=== PATIENT | female | born 1990 | race Caucasian/White ===

== ENCOUNTER 2017-01-29 17:00 | Inpatient (IN) | payer SELFPAY ==
[~2017-01-29] VITALS: Ht 167.6 cm; Wt 70.0 kg
[2017-01-29] MEDS ORDERED: NORMAL SALINE IV SCH (17:41)
[2017-01-29] MEDS ORDERED: ONDANSETRON PF 4 MG/2 ML VIAL. IV ONE (17:45)
[2017-01-29] MEDS: IV NORMAL SALINE 1000ML BAG 1,000 ML IV SCH ×2 (17:49→18:46)
[2017-01-29 17:55] LABS: BASO % 0 % (0-3); EOS % 0 % (0-3); HEMATOCRIT 38.9 % (36.0-47.0); HEMOGLOBIN 13.2 g/dL (12.0-15.5); LYMPH # 1.9 x10^3/uL (1.0-4.8); LYMPH % 12 % (24-48); MEAN CORPUSCULAR HEMOGLOBIN 31 pg (25-35); MEAN CORPUSCULAR HGB CONC 34 g/dL (31-37); MEAN CORPUSCULAR VOLUME 90 fL (79-100); MONO % 8 % (0-9); NEUT % 80 % (31-73); PLATELET COUNT 236 x10^3/uL (140-400); RED BLOOD COUNT 4.31 x10^6/uL (3.50-5.40); RED CELL DISTRIBUTION WIDTH 13.2 % (11.5-14.5); WHITE BLOOD COUNT 15.4 x10^3/uL (4.0-11.0)
[2017-01-29] MEDS: FENTANYL PF 100 MCG/2 ML VIAL. IV PRN ×3 (17:55→23:52)
[2017-01-29 18:01] LABS: BILIRUBIN,URINE NEGATIVE (NEG); GLUCOSE,URINE NEGATIVE (NEG); NITRITE,URINE POSITIVE (NEG); PH,URINE 6.5; PROTEIN,URINE NEGATIVE (NEG-TRACE)
[2017-01-29 18:12] LABS: ALBUMIN 3.5 g/dL (3.4-5.0); TOTAL PROTEIN 8.3 g/dL (6.4-8.2)
[2017-01-29 18:13] LABS: ALBUMIN/GLOBULIN RATIO 0.7 (1.0-1.7); ALK PHOS 66 U/L (46-116); ALT (SGPT) 14 U/L (14-59); ANION GAP 13 (6-14); AST (SGOT) 14 U/L (15-37); BLOOD UREA NITROGEN 5 mg/dL (7-20); BUN/CREATININE RATIO 7 (6-20); CALCIUM 8.9 mg/dL (8.5-10.1); CARBON DIOXIDE 25 mmol/L (21-32); CHLORIDE 98 mmol/L (98-107); CREATININE 0.7 mg/dL (0.6-1.0); GFR 101.1; GLUCOSE 84 mg/dL (70-99); SODIUM 136 mmol/L (136-145); TOTAL BILIRUBIN 0.5 mg/dL (0.2-1.0)
[2017-01-29 18:17] LABS: POTASSIUM 2.9 mmol/L (3.5-5.1)
[2017-01-29 18:19] LABS: WBC,URINE 20-40 /HPF (0-4)
[2017-01-29 18:20] LABS: BACTERIA,URINE MANY /HPF (0-FEW); SQUAMOUS EPITHELIAL CELL,UR MOD /LPF
[2017-01-29] MEDS ORDERED: CEFTRIAXONE 1GM IVPB FOR OMNI 50 ML IV ONE (18:30)
--- NOTE | 2017-01-29 18:47 | PHYS DOC ---
Past Medical History Past Medical History: No Pertinent History Past Surgical History: Other Additional Past Surgical Histo: D & C Alcohol Use: Occasionally Drug Use: Marijuana Adult General Chief Complaint Chief Complaint: FLANK PAIN HPI HPI Patient is a 26 year old female who presents with complaint of left-sided flank pain. Patient states that her symptoms started yesterday but states that her pain was across her back. Patient states that she also had associated body aches and subjective fevers. Patient states that she tried increasing her fluid intake and hoping that this would help with her symptoms. Patient states that she awoke with severe localizing pain in the left flank this morning. Patient continued to have fevers and developed nausea and vomiting. Patient states she has not been able to keep anything down and she rates her pain currently is 10 out of 10. Patient denies any significant past medical history. Review of Systems Review of Systems Constitutional: Fever, chills [] Eyes: Denies change in visual acuity, redness, or eye pain [] HENT: Denies nasal congestion or sore throat [] Respiratory: Denies cough or shortness of breath [] Cardiovascular: Denies chest pain [] GI: Nausea, vomiting, denies abdominal pain bloody stools or diarrhea [] : Denies dysuria or hematuria [] Musculoskeletal: Denies back pain or joint pain [] Integument: Denies rash or skin lesions [] Neurologic: Denies headache, focal weakness or sensory changes [] Current Medications Current Medications Current Medications Medications (Trade) Dose Ordered Sig/[place]ster Start Time Stop Time Status Last Admin Dose Admin Ceftriaxone Sodium (Rocephin 1gm Ivpb For Omni) 50 ml @ 100 mls/hr 1X ONCE 01/29/17 18:30 01/29/17 18:59 DC 01/29/17 19:17 100 MLS/HR Fentanyl Citrate (Fentanyl 2ml Vial) 50 mcg PRN Q15MIN PRN 01/29/17 17:45 01/30/17 17:44 01/29/17 21:28 50 MCG Ondansetron HCl 4 mg 4 mg 1X ONCE 01/29/17 17:45 01/29/17 17:46 DC 01/29/17 17:54 4 MG Sodium Chloride 1,000 ml @ 1,000 mls/hr Q1H 01/29/17 17:46 01/29/17 19:25 DC 01/29/17 17:49 1,000 MLS/HR Sodium Chloride (Iv Sodium Chloride 0.9% 1000ml Bag) 1,830 ml @ 1,830 mls/hr Q1H 01/29/17 17:41 01/29/17 17:46 DC Allergies Allergies Allergies Coded Allergies Type Severity Reaction Last Updated Verified No Known Drug Allergies 01/29/17 No Physical Exam Physical Exam Constitutional: Alert, febrile, appears in moderate to severe discomfort. [] HENT: Normocephalic, atraumatic, bilateral external ears normal, oropharynx moist, no oral exudates, nose normal. [] Eyes: PERRLA, EOMI, conjunctiva normal, no discharge. [] Neck: Normal range of motion, no tenderness, supple, no stridor. [] Cardiovascular: Tachycardia, regular rhythm, no murmur [] Lungs & Thorax: Bilateral breath sounds clear to auscultation [] Abdomen: Bowel sounds normal, soft, no tenderness, no masses, no pulsatile masses. [] Skin: Warm, dry, no erythema, no rash. [] Back: Left CVA tenderness, no midline tenderness, no flank ecchymosis. [] Extremities: No tenderness, no cyanosis, no clubbing, ROM intact, no edema. [] Neurologic: Alert and oriented X 3, normal motor function, normal sensory function, no focal deficits noted. [] Current Patient Data Vital Signs Vital Signs Date Time Temp Pulse Resp B/P Pulse Ox O2 Delivery O2 Flow Rate FiO2 01/29/17 17:55 20 99 Room Air 01/29/17 17:13 100.0 112 115/75 100.0 Lab Values Laboratory Tests Test 01/29/17 17:05 01/29/17 17:14 01/29/17 17:15 01/29/17 18:05 Urine Collection Type Unknown Urine Color Yellow Urine Clarity Clear Urine pH 6.5 Urine Specific [place] 1.010 Urine Protein Negativemg/dL (NEG-TRACE) Urine Glucose (UA) Negativemg/dL (NEG) Urine Ketones (Stick) Negativemg/dL (NEG) Urine Blood Small (NEG) Urine Nitrite Positive (NEG) Urine Bilirubin Negative (NEG) Urine Urobilinogen Dipstick 1.0mg/dL (0.2 mg/dL) Urine Leukocyte Esterase Large (NEG) Urine RBC 1-2/HPF (0-2) Urine WBC 20-40/HPF (0-4) Urine Squamous Epithelial Cells Mod/LPF Urine Bacteria Many/HPF (0-FEW) Urine Mucus Marked/LPF POC Urine HCG, Qualitative Hcg negative (Negative) White Blood Count 15.4x10^3/uL (4.0-11.0) H Red Blood Count 4.31x10^6/uL (3.50-5.40) Hemoglobin 13.2g/dL (12.0-15.5) Hematocrit 38.9% (36.0-47.0) Mean Corpuscular Volume 90fL (79-100) Mean Corpuscular Hemoglobin 31pg (25-35) Mean Corpuscular Hemoglobin Concent 34g/dL (31-37) Red Cell Distribution Width 13.2% (11.5-14.5) Platelet Count 236x10^3/uL (140-400) Neutrophils (%) (Auto) 80% (31-73) H Lymphocytes (%) (Auto) 12% (24-48) L Monocytes (%) (Auto) 8% (0-9) Eosinophils (%) (Auto) 0% (0-3) Basophils (%) (Auto) 0% (0-3) Neutrophils # (Auto) 12.3x10^3uL (1.8-7.7) H Lymphocytes # (Auto) 1.9x10^3/uL (1.0-4.8) Monocytes # (Auto) 1.2x10^3/uL (0.0-1.1) H Eosinophils # (Auto) 0.0x10^3/uL (0.0-0.7) Basophils # (Auto) 0.0x10^3/uL (0.0-0.2) Sodium Level 136mmol/L (136-145) Potassium Level 2.9mmol/L (3.5-5.1) *L Chloride Level 98mmol/L (98-107) Carbon Dioxide Level 25mmol/L (21-32) Anion Gap 13 (6-14) Blood Urea Nitrogen 5mg/dL (7-20) L Creatinine 0.7mg/dL (0.6-1.0) Estimated GFR (Cockcroft-Gault) 101.1 BUN/Creatinine Ratio 7 (6-20) Glucose Level 84mg/dL (70-99) Calcium Level 8.9mg/dL (8.5-10.1) Total Bilirubin 0.5mg/dL (0.2-1.0) Aspartate Amino Transferase (AST) 14U/L (15-37) L Alanine Aminotransferase (ALT) 14U/L (14-59) Alkaline Phosphatase 66U/L (46-116) Total Protein 8.3g/dL (6.4-8.2) H Albumin 3.5g/dL (3.4-5.0) Albumin/Globulin Ratio 0.7 (1.0-1.7) L Lipase 101U/L (73-393) Procalcitonin < 0.10ng/mL (0.00-0.10) Lactic Acid Level 1.9mmol/L (0.4-2.0) Laboratory Tests 01/29/17 17:15 Laboratory Tests 01/29/17 17:15 EKG EKG Not performed [] Radiology/Procedures Radiology/Procedures One view AP chest x-ray interpreted by me: No infiltrate, no effusions, normal cardiac silhouette [facility] [address] [place] [address] IMAGING REPORT Signed PATIENT: JUAN F MOLINA ACCOUNT: [id number] : 1990 LOCATION: ER AGE: 26 SEX: F EXAM STATUS: REG ER ORD. PHYSICIAN: DARRYL SEBASTIAN MD REASON: left-sided flank pain, rule out renal stone PROCEDURE: ABDOMEN PELVIS WO CONTRAST INDICATION: 26-year-old female with bilateral flank pain, mostly on the left, evaluate COMPARISON: None TECHNIQUE: Axial CT images obtained through the abdomen and pelvis without the use of intravenous contrast. Coronal and sagittal reformats are provided One or more of the following individualized dose reduction techniques were utilized for this examination: 1. Automated exposure control; 2. Adjustment of the mA and/or kV according to patient size; 3. Use of iterative reconstruction technique. FINDINGS: Visualized lung bases appear clear. Detailed evaluation of intra-abdominal and pelvic organs and vascular structures is limited secondary to lack of IV contrast. Within this limitation, the liver, spleen, gallbladder, pancreas, adrenal glands and right kidney demonstrate no focal abnormality. A punctate, 1-2 mm calculus is present within the inferior left kidney. No hydronephrosis is present. No additional urolithiasis is seen. The GI tract demonstrates no dilated bowel loops to suggest obstruction. Appendix is normal in caliber and air-filled in the right lower quadrant. The urinary bladder demonstrates no focal abnormality. Uterus and bilateral adnexa demonstrate no focal abnormality. No intra-abdominal or pelvic free fluid, free air or significant lymphadenopathy is seen. The aorta is normal in caliber. Visualized osseous structures and overlying soft tissues demonstrate no acute or suspicious finding. IMPRESSION: A punctate, nonobstructing calculus is present in the inferior left kidney. No additional urolithiasis is present. Electronically signed by: Ld Parikh (Jan 29, 2017 18:58:10) DICTATED and SIGNED BY: LD PARIKH MD DATE: 01/29/17 [id number] CC: ARTI BOYKIN MD; DARRYL SEBASTIAN MD ~ [] Course & Med Decision Making Course & Med Decision Making Pertinent Labs and Imaging studies reviewed. (See chart for details) Patient was found to have evidence of urinary tract infection. Given patient's left CVA tenderness the patient's symptoms are consistent with acute pyelonephritis. Patient meet sepsis criteria at this time due to tachycardia and elevated white count. The patient was also found to have a potassium level of 2.9. Patient is unable to receive oral replacement at this time due to continued nausea and vomiting. The patient will need further treatment in hospital with IV Rocephin and IV hydration. I spoke with Dr. Mills who is on- call for Dr. Boykin and he accepted care of patient in hospital. Dragon Disclaimer Dragon Disclaimer This electronic medical record was generated, in whole or in part, using a voice recognition dictation system. Departure Departure Impression: Primary Impression: Acute pyelonephritis Additional Impressions: Sepsis Hypokalemia Disposition: ADMITTED INPATIENT Admitting Physician: Belle Bernardo Condition: GUARDED Referrals: ARTI BOYKIN MD (PCP) Problem Qualifiers Additional Impressions: Sepsis Sepsis type: sepsis due to unspecified organism Qualified Code: A41.9 - Sepsis, unspecified organism DARRYL SEBASTIAN MD Jan 29, 2017 18:47
--- NOTE | 2017-01-29 18:59 | RAD ---
INDICATION: 26-year-old female with bilateral flank pain, mostly on the left, evaluate COMPARISON: None TECHNIQUE: Axial CT images obtained through the abdomen and pelvis without the use of intravenous contrast. Coronal and sagittal reformats are provided One or more of the following individualized dose reduction techniques were utilized for this examination: 1. Automated exposure control; 2. Adjustment of the mA and/or kV according to patient size; 3. Use of iterative reconstruction technique. FINDINGS: Visualized lung bases appear clear. Detailed evaluation of intra-abdominal and pelvic organs and vascular structures is limited secondary to lack of IV contrast. Within this limitation, the liver, spleen, gallbladder, pancreas, adrenal glands and right kidney demonstrate no focal abnormality. A punctate, 1-2 mm calculus is present within the inferior left kidney. No hydronephrosis is present. No additional urolithiasis is seen. The GI tract demonstrates no dilated bowel loops to suggest obstruction. Appendix is normal in caliber and air-filled in the right lower quadrant. The urinary bladder demonstrates no focal abnormality. Uterus and bilateral adnexa demonstrate no focal abnormality. No intra-abdominal or pelvic free fluid, free air or significant lymphadenopathy is seen. The aorta is normal in caliber. Visualized osseous structures and overlying soft tissues demonstrate no acute or suspicious finding. IMPRESSION: A punctate, nonobstructing calculus is present in the inferior left kidney. No additional urolithiasis is present. Electronically signed by: Benita Parikh (Jan 29, 2017 18:58:10)
[2017-01-29 19:26] LABS: PROCALCITONIN < 0.10 ng/mL (0.00-0.10)
[2017-01-29] MEDS ORDERED: ACETAMINOPHEN 325 MG TABLET. PO PRN (19:45)
[2017-01-29] MEDS ORDERED: POTASSIUM CL 20MEQ D5-0.45NACL 1,000 ML IV ONE (19:45)
[2017-01-29 21:15] VITALS: BP 110/62
--- NOTE | 2017-01-29 21:43 | ACF ---
Admission Forms Criteria PYELONEPHRITIS, ACUTE Clinical Indications for Admission to Inpatient Care (Place 'X' for any and all applicable criteria): Admission is indicated for ANY ONE of the following 1,2,3,4,5 [ ]I. Outpatient treatment has failed or is not feasible (eg, multidrug- resistant organism).5 [ ]II. beyond 24 weeks' gestation6 [ ]III. Hemodynamic instability [ ]IV. Immunocompromised state (eg, AIDS, diabetes, sickle cell disease) [X]V. Known renal or urologic abnormalities (eg, indwelling catheter, structural abnormalities, renal calculi, urinary stent, previous urologic surgery) [ ]. Condition that requires drainage procedure, including ANY ONE of the following: [ ]a) Urinary obstruction [ ]b) Pyelitis [ ]c) Pyonephrosis [ ]d) Renal or perinephric abscess [ ]e) Emphysematous pyelonephritis 7 [ ]VII. Inpatient admission required rather than observation care (Also use Pyelonephritis, Acute: Observation Care Criteria as appropriate) because of ANY ONE of the following: [ ]a) High fever or infection requiring inpatient admission as indicated by ANY ONE of [id number] [ ]A. Documented bacteremia [ ]B. Temp>104.9 tytkgmg8X (oral) [ ]C. Temp>103.10F (oral) or <96.80F (rectal) that does not respond to all emergency treatment [ ]b) Acute renal failure [ ]c) Other significant finding or clinical condition judged not to be within the scope of observation care [ ]d) IV fluid to replace significant ongoing (eg, for over 24hrs) losses (> 3 L/m2 per day) [ ]e) Other condition,treatment or monitoring requiring inpatient admission The original [email or web address] content created by [employer] has been revised. The portions of the content which have been revised are identified through the use of italic text or in bold, and [facility] has neither reviewed nor approved the modified material. All other unmodified content is copyright [facility]. Please see references footnoted in the original [facility] edition 2016 Admission Criteria Met?: Yes MADYSON NARVAEZ Jan 29, 2017 21:43
[2017-01-29 22:39] VITALS: BP 115/75
[2017-01-29] MEDS: ONDANSETRON PF 4 MG/2 ML VIAL. IV PRN (22:46)
[2017-01-29 23:00] VITALS: BP_SYST 92
[2017-01-30 03:00] VITALS: BP 91/50
[2017-01-30] MEDS: FENTANYL PF 100 MCG/2 ML VIAL. IV PRN ×4 (05:50→15:06)
[2017-01-30 06:35] LABS: BASO # 0.1 x10^3/uL (0.0-0.2); BASO % 1 % (0-3); EOS % 0 % (0-3); HEMATOCRIT 35.1 % (36.0-47.0); HEMOGLOBIN 11.8 g/dL (12.0-15.5); LYMPH % 19 % (24-48); MEAN CORPUSCULAR HEMOGLOBIN 31 pg (25-35); MEAN CORPUSCULAR HGB CONC 34 g/dL (31-37); MEAN CORPUSCULAR VOLUME 93 fL (79-100); MONO % 12 % (0-9); NEUT % 69 % (31-73); PLATELET COUNT 187 x10^3/uL (140-400); RED BLOOD COUNT 3.78 x10^6/uL (3.50-5.40); RED CELL DISTRIBUTION WIDTH 13.1 % (11.5-14.5); WHITE BLOOD COUNT 10.9 x10^3/uL (4.0-11.0)
[2017-01-30 06:47] LABS: CALCIUM 8.3 mg/dL (8.5-10.1); CREATININE 0.6 mg/dL (0.6-1.0); GFR 120.8; POTASSIUM 3.5 mmol/L (3.5-5.1)
[2017-01-30 07:00] VITALS: BP 96/51
[2017-01-30] MEDS ORDERED: FLU VACC QUAD 2016-17 (36MOS+)/PF 0.5 ML SYRINGE. VAX IM ONE (07:30)
[2017-01-30] MEDS: POTASSIUM CL 20MEQ D5-0.45NACL 1,000 ML IV SCH (07:45)
--- NOTE | 2017-01-30 07:48 | PDOC ---
Provider Note Provider Note [id number] RUDY ZAPIEN MD Jan 30, 2017 07:47
--- NOTE | 2017-01-30 08:47 | RAD ---
EXAM: Chest one view. HISTORY: Fever, left flank pain, vomiting. COMPARISON: None. FINDINGS: A frontal view of the chest is obtained. There are no confluent infiltrates. There is no pneumothorax or pleural effusion. The heart is not enlarged. IMPRESSION: 1. No confluent infiltrates.
--- NOTE | 2017-01-30 08:57 | HP ---
ADMIT DATE: 01/29/2017 CHIEF COMPLAINT: Urinary tract infection. HISTORY OF PRESENT ILLNESS: This is a 26-year-old white female who came in with about 12 hours of left flank and lower abdominal pain, nausea, vomiting, fever and chills. She did not have overt urinary tract symptoms, but was found to have pyelonephritis per urine tests. CT scan did not show any hydronephrosis, but there was a small stone in the left kidney. She is feeling somewhat better at this time. PAST MEDICAL HISTORY: No pregnancies, no surgery, no serious medications or known allergies to any drugs. SOCIAL HISTORY: Nonsmoker, single, sexually active, uses condoms. FAMILY HISTORY: Unremarkable. REVIEW OF SYSTEMS: Last menstrual period about 10 days ago. She has had no other specific complaints. OBJECTIVE: ENT: All within normal limits. NECK: No masses, nodes or bruits. LUNGS: Clear. CARDIOVASCULAR: Regular rate. No tachycardia or murmur. ABDOMEN: Soft, benign and nontender. No masses or megaly. BACK: Very tender to palpation over the left flank. Right flank is normal. GENITOURINARY AND RECTAL: Deferred. EXTREMITIES: Unremarkable. Good pedal pulses. NEUROLOGIC: Physiologic. ASSESSMENT: Left-sided pyelonephritis, otherwise healthy. PLAN: Continue fluids and Rocephin. Pending culture. RUDY ZAPIEN MD DR: AMMY/dinah JOB#: [id number] / [id number]
--- NOTE | 2017-01-30 09:10 | EKG ---
[facility] [address] [place] [address] Test Date: 2017-01-29 Test Time: 18:00:24 Pat Name: JUAN F MOLINA Department: Room: Gender: F Turner [employer] Former Automatic: : 1990 Requested By: DARRYL SEBASTIAN Order Number: [id number] Reading MD: Measurements Intervals [place] Rate: 92 P: 36 CO: 132 QRS: 31 QRSD: 82 T: 28 QT: 340 QTc: 425 Interpretive Statements SINUS RHYTHM INCOMPLETE RIGHT BUNDLE BRANCH BLOCK T ABNORMALITY IN ANTERIOR LEADS RI6.01 Unconfirmed report No previous ECG available for comparison
[2017-01-30 11:00] VITALS: BP 114/75
[2017-01-30] MEDS: ONDANSETRON PF 4 MG/2 ML VIAL. IV PRN (11:37)
[2017-01-30 15:00] VITALS: BP 115/71
[2017-01-30 19:00] VITALS: BP 105/64
[2017-01-30] MEDS: ACETAMINOPHEN 325 MG TABLET. PO PRN (20:38)
[2017-01-30] MEDS: CEFTRIAXONE SODIUM 1 GM in IV NORMAL SALINE 50ML 50 ML IV SCH (20:38)
[2017-01-30 23:09] VITALS: BP 104/61
[2017-01-31] MEDS: POTASSIUM CL 20MEQ D5-0.45NACL 1,000 ML IV SCH ×3 (01:20→14:48)
[2017-01-31] MEDS: ACETAMINOPHEN 325 MG TABLET. PO PRN ×4 (04:22→22:07)
[2017-01-31 07:00] VITALS: BP 104/74
[2017-01-31 10:46] VITALS: BP 114/76
--- NOTE | 2017-01-31 11:14 | PDOC ---
PROGRESS NOTES Subjective Subjective Pt awake and pleasant in conversation. Continues to c/o discomfort in her left lower back. States her appetite is returning. Denies n/v/d. Objective Objective Pt awake and alert. NAD. VSS. Tmax 99.9. Resp even and unlabored. Lungs CTA bilat. Heart with RRR. No murmurs. No pedal edema. Positive left sided CVT. Vital Signs Date Time Temp Pulse Resp B/P Pulse Ox O2 Delivery O2 Flow Rate FiO2 01/31/17 10:46 98.6 70 18 114/76 99 Room Air 98.6 Intake and Output 01/31/17 07:00 Intake Total 1890 ml Output Total 3550 ml Balance -1660 ml Intake Oral 840 ml IV Total 1050 ml Output Urine Total 3550 ml Assessment Assessment Problems Medical Problems: (1) Acute pyelonephritis Status: Acute (2) Hypokalemia Status: Acute (3) Sepsis Status: Acute Plan Plan of Care 1. Pyelonephritis -UA with gram negative rods, cx pending -Rocephin IV during interim -WBC 10.9 this am, trending down -Blood cx negative 2. Hypokalemia -K 2.9 on 01/29, 3.5 this am following replacement in IVF. Awaiting final urine cx results and sensitivity. Once resulted can Dc pt home on PO med based on sensitivity. Comment Review of Relevant I have reviewed the following items pamela (where applicable) has been applied. Labs Laboratory Tests Test 01/29/17 17:05 01/29/17 17:14 01/29/17 17:15 01/29/17 18:05 Urine Collection Type Unknown Urine Color Yellow Urine Clarity Clear Urine pH 6.5 Urine Specific [place] 1.010 Urine Protein Negativemg/dL (NEG-TRACE) Urine Glucose (UA) Negativemg/dL (NEG) Urine Ketones (Stick) Negativemg/dL (NEG) Urine Blood Small (NEG) Urine Nitrite Positive (NEG) Urine Bilirubin Negative (NEG) Urine Urobilinogen Dipstick 1.0mg/dL (0.2 mg/dL) Urine Leukocyte Esterase Large (NEG) Urine RBC 1-2/HPF (0-2) Urine WBC 20-40/HPF (0-4) Urine Squamous Epithelial Cells Mod/LPF Urine Bacteria Many/HPF (0-FEW) Urine Mucus Marked/LPF Bedside Urine HCG, Qualitative Hcg negative (Negative) White Blood Count 15.4x10^3/uL (4.0-11.0) Red Blood Count 4.31x10^6/uL (3.50-5.40) Hemoglobin 13.2g/dL (12.0-15.5) Hematocrit 38.9% (36.0-47.0) Mean Corpuscular Volume 90fL (79-100) Mean Corpuscular Hemoglobin 31pg (25-35) Mean Corpuscular Hemoglobin Concent 34g/dL (31-37) Red Cell Distribution Width 13.2% (11.5-14.5) Platelet Count 236x10^3/uL (140-400) Neutrophils (%) (Auto) 80% (31-73) Lymphocytes (%) (Auto) 12% (24-48) Monocytes (%) (Auto) 8% (0-9) Eosinophils (%) (Auto) 0% (0-3) Basophils (%) (Auto) 0% (0-3) Neutrophils # (Auto) 12.3x10^3uL (1.8-7.7) Lymphocytes # (Auto) 1.9x10^3/uL (1.0-4.8) Monocytes # (Auto) 1.2x10^3/uL (0.0-1.1) Eosinophils # (Auto) 0.0x10^3/uL (0.0-0.7) Basophils # (Auto) 0.0x10^3/uL (0.0-0.2) Sodium Level 136mmol/L (136-145) Potassium Level 2.9mmol/L (3.5-5.1) Chloride Level 98mmol/L (98-107) Carbon Dioxide Level 25mmol/L (21-32) Anion Gap 13 (6-14) Blood Urea Nitrogen 5mg/dL (7-20) Creatinine 0.7mg/dL (0.6-1.0) Estimated GFR (Cockcroft-Gault) 101.1 BUN/Creatinine Ratio 7 (6-20) Glucose Level 84mg/dL (70-99) Calcium Level 8.9mg/dL (8.5-10.1) Total Bilirubin 0.5mg/dL (0.2-1.0) Aspartate Amino Transf (AST/SGOT) 14U/L (15-37) Alanine Aminotransferase (ALT/SGPT) 14U/L (14-59) Alkaline Phosphatase 66U/L (46-116) Total Protein 8.3g/dL (6.4-8.2) Albumin 3.5g/dL (3.4-5.0) Albumin/Globulin Ratio 0.7 (1.0-1.7) Lipase 101U/L (73-393) Procalcitonin < 0.10ng/mL (0.00-0.10) Lactic Acid Level 1.9mmol/L (0.4-2.0) Test 01/29/17 19:37 01/30/17 05:55 Lactic Acid Level 0.7mmol/L (0.4-2.0) White Blood Count 10.9x10^3/uL (4.0-11.0) Red Blood Count 3.78x10^6/uL (3.50-5.40) Hemoglobin 11.8g/dL (12.0-15.5) Hematocrit 35.1% (36.0-47.0) Mean Corpuscular Volume 93fL (79-100) Mean Corpuscular Hemoglobin 31pg (25-35) Mean Corpuscular Hemoglobin Concent 34g/dL (31-37) Red Cell Distribution Width 13.1% (11.5-14.5) Platelet Count 187x10^3/uL (140-400) Neutrophils (%) (Auto) 69% (31-73) Lymphocytes (%) (Auto) 19% (24-48) Monocytes (%) (Auto) 12% (0-9) Eosinophils (%) (Auto) 0% (0-3) Basophils (%) (Auto) 1% (0-3) Neutrophils # (Auto) 7.6x10^3uL (1.8-7.7) Lymphocytes # (Auto) 2.0x10^3/uL (1.0-4.8) Monocytes # (Auto) 1.3x10^3/uL (0.0-1.1) Eosinophils # (Auto) 0.0x10^3/uL (0.0-0.7) Basophils # (Auto) 0.1x10^3/uL (0.0-0.2) Sodium Level 139mmol/L (136-145) Potassium Level 3.5mmol/L (3.5-5.1) Chloride Level 106mmol/L (98-107) Carbon Dioxide Level 24mmol/L (21-32) Anion Gap 9 (6-14) Blood Urea Nitrogen 2mg/dL (7-20) Creatinine 0.6mg/dL (0.6-1.0) Estimated GFR (Cockcroft-Gault) 120.8 Glucose Level 94mg/dL (70-99) Calcium Level 8.3mg/dL (8.5-10.1) Microbiology 01/29/17 Blood Culture - Preliminary, Resulted NO GROWTH AFTER 1 DAY 01/29/17 Urine Culture - Preliminary, Resulted 01/29/17 Urine Culture Result 1 (CANDIDO) - Preliminary, Resulted Medications Current Medications Sodium Chloride (Iv Sodium Chloride 0.9% 1000ml Bag) 1,830 ml @ 1,830 mls/hr Q1H IV ; Start 01/29/17 at 17:41; Stop 01/29/17 at 17:46; Status DC Fentanyl Citrate (Fentanyl 2ml Vial) 50 mcg PRN Q15MIN PRN IV PAIN GREATER THAN 3/10 Last administered on 01/30/17 11:36; Start 01/29/17 at 17:45; Stop 01/30 at 17:44; Status DC Ondansetron HCl 4 mg 4 mg 1X ONCE IV Last administered on 01/29/17 17:54; Start 01/29/17 at 17:45; Stop 01/29/17 at 17:46; Status DC Sodium Chloride 1,000 ml @ 1,000 mls/hr Q1H IV Last administered on 01/29/17 17:49; Start 01/29/17 at 17:46; Stop 01/29/17 at 19:25; Status DC Ceftriaxone Sodium (Rocephin 1gm Ivpb For Omni) 50 ml @ 100 mls/hr 1X ONCE IV Last administered on 01/29/17 19:17; Start 01/29/17 at 18:30; Stop 01/29/17 at 18:59; Status DC Ondansetron HCl (Zofran) 4 mg PRN Q8HRS PRN IV NAUSEA/VOMITING Last administered on 01/30/17 11:37; Start 01/29/17 at 19:45; Stop 01/30/17 at 19:44; Status DC Fentanyl Citrate (Fentanyl 2ml Vial) 50 mcg PRN Q2HR PRN IV PAIN Last administered on 01/30/17 15:06; Start 01/29/17 at 19:45; Stop 01/30/17 at 19:44; Status DC Acetaminophen 650 mg 650 mg PRN Q4HRS PRN PO FEVER Last administered on 23:51; Start 01/29/17 at 19:45; Stop 01/30/17 at 19:44; Status DC Potassium Chloride/Dextrose/ Sod Cl 1,000 ml @ 125 mls/hr 1X ONCE IV Last administered on 01/29/17 19:58; Start 01/29/17 at 19:45; Stop 01/30/17 at 03:45; Status DC Ceftriaxone Sodium/Sodium Chloride (Rocephin/Iv Sodium Chloride 0.9% 50ml) 50 ml @ 100 mls/hr Q24H IV Last administered on 01/30/17 20:38; Start 01/30/17 at 19:00 Influenza Virus Vaccine Quadrival 0.5 ml 0.5 ml ONCE ONCE VAX IM ; Start at 07:30; Stop 01/30/17 at 07:31; Status DC Potassium Chloride/Dextrose/ Sod Cl (KCl 20 Meq In D5W-1/2 NS) 1,000 ml @ 100 mls/hr Q10H IV Last administered on 01/31/17 01:20; Start 01/30/17 at 07:45 Acetaminophen (Tylenol) 650 mg PRN Q6HRS PRN PO MILD PAIN / TEMP Last administered on 01/31/17 04:22; Start 01/30/17 at 08:00 Vitals/I & O Vital Sign - Last 24 Hours 01/30/17 01/30/17 01/30/17 01/30/17 11:36 13:11 15:00 15:06 Temp 99.9 99.9 Pulse 89 Resp 18 B/P 115/71 Pulse Ox 98 98 99 98 O2 Delivery Room Air Room Air Room Air Room Air 01/30/17 01/30/17 01/30/17 01/30/17 16:40 19:00 20:00 23:09 Temp 99.4 97.9 99.4 97.9 Pulse 98 71 Resp 18 B/P 105/64 104/61 Pulse Ox 98 96 99 O2 Delivery Room Air Room Air Room Air Room Air 01/31/17 01/31/17 07:00 10:46 Temp 98.4 98.6 98.4 98.6 Pulse 75 70 Resp 18 B/P 104/74 114/76 Pulse Ox 97 99 O2 Delivery Room Air Room Air Intake and Output 01/30/17 01/30/17 01/31/17 15:00 23:00 07:00 Intake Total 650 ml 1240 ml Output Total 2300 ml 1250 ml Balance -1650 ml -10 ml ARTI RICHARDSON MD Jan 31, 2017 11:14
[2017-01-31 14:59] VITALS: BP 110/75
[2017-01-31 19:09] VITALS: BP 110/63
[2017-01-31] MEDS: CEFTRIAXONE SODIUM 1 GM in IV NORMAL SALINE 50ML 50 ML IV SCH (19:51)
[2017-01-31 23:00] VITALS: BP 128/82
[2017-02-01 03:00] VITALS: BP 106/66
[2017-02-01 07:00] VITALS: BP 122/82
[2017-02-01] MEDS ORDERED: CIPR500T94 PO (09:42)
--- NOTE | 2017-02-01 09:42 | PDOC ---
PROGRESS NOTES Subjective Subjective Pt awake and pleasant. States she is feeling better with less back pain. Pt states her appetite is returning. Objective Objective Pt awake and alert. NAD. VSS. Afebrile. Lungs CTA bilat. Resp even and unlabored. Pt on RA, not requiring supplemental O2. Positive CVT on left, improving. Vital Signs Date Time Temp Pulse Resp B/P Pulse Ox O2 Delivery O2 Flow Rate FiO2 02/01/17 07:00 97.7 84 18 122/82 99 Room Air 97.7 Intake and Output 02/01/17 07:00 Intake Total 1680 ml Output Total 300 ml Balance 1380 ml Intake Oral 1630 ml IV Total 50 ml Output Urine Total 300 ml # Voids 4 Assessment Assessment Problems Medical Problems: (1) Acute pyelonephritis Status: Acute (2) Hypokalemia Status: Acute (3) Sepsis Status: Acute Plan Plan of Care 1. Pyelonephritis -UA with gram negative rods, cx with E.Coli -Rocephin IV during cx pending. Change to Cipro upon Dc based on sensitivity. -WBC 10.9 01/31, trending down -Blood cx negative 2. Hypokalemia -K 2.9 on 01/29, 3.5 01/31 following replacement in IVF. Dc pt home today. Regular diet. Activity as tolerated. Resume home medications with addition of Cipro 500mg, 1 tablet PO bid x 10d. Pt to f/u in clinic in 1 week ([phone]). Comment Review of Relevant I have reviewed the following items pamela (where applicable) has been applied. Labs Microbiology 01/29/17 Blood Culture - Preliminary, Resulted NO GROWTH AFTER 2 DAYS 01/29/17 Urine Culture - Final, Complete 01/29/17 Urine Culture Result 1 (CANDIDO) - Final, Complete 01/29/17 Antimicrobic Susceptibility - Final, Complete Medications Current Medications Sodium Chloride (Iv Sodium Chloride 0.9% 1000ml Bag) 1,830 ml @ 1,830 mls/hr Q1H IV ; Start 01/29/17 at 17:41; Stop 01/29/17 at 17:46; Status DC Fentanyl Citrate (Fentanyl 2ml Vial) 50 mcg PRN Q15MIN PRN IV PAIN GREATER THAN 3/10 Last administered on 01/30/17t 11:36; Start 01/29/17 at 17:45; Stop 01/30 at 17:44; Status DC Ondansetron HCl 4 mg 4 mg 1X ONCE IV Last administered on 01/29/17 17:54; Start 01/29/17 at 17:45; Stop 01/29/17 at 17:46; Status DC Sodium Chloride 1,000 ml @ 1,000 mls/hr Q1H IV Last administered on 01/29/17 17:49; Start 01/29/17 at 17:46; Stop 01/29/17 at 19:25; Status DC Ceftriaxone Sodium (Rocephin 1gm Ivpb For Omni) 50 ml @ 100 mls/hr 1X ONCE IV Last administered on 01/29/17 19:17; Start 01/29/17 at 18:30; Stop 01/29/17 at 18:59; Status DC Ondansetron HCl (Zofran) 4 mg PRN Q8HRS PRN IV NAUSEA/VOMITING Last administered on 01/30/17 11:37; Start 01/29/17 at 19:45; Stop 01/30/17 at 19:44; Status DC Fentanyl Citrate (Fentanyl 2ml Vial) 50 mcg PRN Q2HR PRN IV PAIN Last administered on 01/30/17 15:06; Start 01/29/17 at 19:45; Stop 01/30/17 at 19:44; Status DC Acetaminophen 650 mg 650 mg PRN Q4HRS PRN PO FEVER Last administered on 23:51; Start 01/29/17 at 19:45; Stop 01/30/17 at 19:44; Status DC Potassium Chloride/Dextrose/ Sod Cl 1,000 ml @ 125 mls/hr 1X ONCE IV Last administered on 01/29/17 19:58; Start 01/29/17 at 19:45; Stop 01/30/17 at 03:45; Status DC Ceftriaxone Sodium/Sodium Chloride (Rocephin/Iv Sodium Chloride 0.9% 50ml) 50 ml @ 100 mls/hr Q24H IV Last administered on 01/31/17 19:51; Start 01/30/17 at 19:00 Influenza Virus Vaccine Quadrival 0.5 ml 0.5 ml ONCE ONCE VAX IM ; Start at 07:30; Stop 01/30/17 at 07:31; Status DC Potassium Chloride/Dextrose/ Sod Cl (KCl 20 Meq In D5W-1/2 NS) 1,000 ml @ 100 mls/hr Q10H IV Last administered on 01/31/17 14:48; Start 01/30/17 at 07:45 Acetaminophen (Tylenol) 650 mg PRN Q6HRS PRN PO MILD PAIN / TEMP Last administered on 01/31/17 22:07; Start 01/30/17 at 08:00 Vitals/I & O Vital Sign - Last 24 Hours 01/31/17 01/31/17 01/31/17 01/31/17 10:46 14:59 19:09 20:00 Temp 98.6 98.1 98.1 98.6 98.1 98.1 Pulse 70 73 65 Resp 18 18 20 B/P 114/76 110/75 110/63 Pulse Ox 99 99 100 O2 Delivery Room Air Room Air Room Air Room Air 01/31/17 02/01/17 02/01/17 23:00 03:00 07:00 Temp 98.4 97.4 97.7 98.4 97.4 97.7 Pulse 94 70 84 Resp 20 20 18 B/P 128/82 106/66 122/82 Pulse Ox 98 100 99 O2 Delivery Room Air Room Air Room Air Intake and Output 01/31/17 01/31/17 02/01/17 15:00 23:00 07:00 Intake Total 240 ml 1190 ml 250 ml Output Total 300 ml Balance 240 ml 1190 ml -50 ml ARTI RICHARDSON MD Feb 01, 2017 09:42
[2017-02-01 10:36] VITALS: BP 117/76
[2017-02-01] MEDS: ACETAMINOPHEN 325 MG TABLET. PO PRN (11:22)
--- NOTE | 2017-02-01 19:40 | DS ---
DATE OF DISCHARGE: 02/01/2017 DISCHARGE DIAGNOSIS: Pyelonephritis. HISTORY OF PRESENT ILLNESS: This is a 26-year-old female who presented to the Emergency Room on the date of admission with complaints of left-sided flank pain, body aches and subjective fevers. The patient stated that her signs and symptoms began approximately 12-24 hours prior to presenting to the Emergency Room. She stated that her pain was a 10/10 on her back. The patient denied any urinary tract symptoms. Upon evaluation in the Emergency Room, the patient was found to be febrile and have leukocytosis. Her urine did reveal large leukocytes. The patient was given a dose of IV Rocephin as well as fentanyl for her pain. She was started on IV fluids as well. The patient was admitted to the hospital for pyelonephritis. SUMMARY OF STAY: Upon admission, a CT scan was done that revealed no hydronephrosis. The patient was continued on her IV Rocephin while the urine culture was pending. The patient did gradually improve and the leukocytosis did begin to trend down. Culture results ultimately revealed E. coli and sensitivity revealed sensitivity to ciprofloxacin. DISPOSITION: The patient will be discharged home on Cipro. DIET: Regular. ACTIVITY: As tolerated. DISCHARGE MEDICATIONS: Listed on the medical record and have been addressed. The patient will continue on Cipro 500 mg 1 tablet p.o. b.i.d. x 10 days. FOLLOWUP: The patient is to follow up in our clinic in 1 week. The patient stated understanding of the above discharge summary, denied questions and will follow up accordingly. ARTI RICHARDSON MD DR: DORINDA/dinah JOB#: [id number] / [id number]
== END 2017-02-01 12:55 | disposition home or self-care (01) | DRG 872 ==
LOC: ER 17:00 → 5 SOUTH 18:41
PROVIDERS: ADMIT Family Medicine; ATTEND Family Medicine
DX: A41.9 Sepsis, unspecified organism (principal); N10 Acute pyelonephritis; E87.6 Hypokalemia; N20.0 Calculus of kidney
CPT/HCPCS: 36415; 71010; 74176; 80048; 80053; 81001; 81025; 83605; 83690; 84145; 85027; 87040; 87086; 87186; 90686; 93005; 96365; 96366; 96368; 96375; J0690; J0696; J2405; J3010; J7030; 99285-25

== ENCOUNTER 2017-09-03 01:33 | Emergency (ER) | payer SELFPAY ==
[~2017-09-03] VITALS: Ht 165.1 cm; Wt 56.7 kg
[~2017-09-03 01:33] MED LIST: CIPR500T94 PO
[2017-09-03 01:35] VITALS: BP 118/82
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
[2017-09-03] MEDS ORDERED: NAPR500T PO (02:29)
--- NOTE | 2017-09-03 07:35 | RAD ---
Indication injury, pain. A Douglas' view was obtained as well as lateral views targeted to the nasal bone. The visualized paranasal sinuses appear normal. The nasal bone appears normal. No fracture is seen. The nasal spine appears normal
== END 2017-09-03 02:40 | disposition home or self-care (01) ==
LOC: ER 01:33
DX: S00.33XA Contusion of nose, initial encounter (principal); F12.10 Cannabis abuse, uncomplicated; F17.210 Nicotine dependence, cigarettes, uncomplicated; W50.0XXA Accidental hit or strike by another person, initial encounter; Y93.89 Activity, other specified; Y92.89 Other specified places as the place of occurrence of the external cause; Y99.8 Other external cause status
CPT/HCPCS: 70150; 99284

== ENCOUNTER 2018-01-21 20:27 | Emergency (ER) | payer SELFPAY ==
[2018-01-21 21:25] LABS: URINE HCG POC HCG POSITIVE (Negative)
[2018-01-21 21:37] LABS: BILIRUBIN,URINE NEGATIVE (NEG); CLARITY,URINE CLOUDY; COLOR,URINE YELLOW; GLUCOSE,URINE NEGATIVE (NEG); NITRITE,URINE NEGATIVE (NEG); PROTEIN,URINE NEGATIVE (NEG-TRACE); UROBILINOGEN,URINE 0.2 mg/dL (0.2 mg/dL)
[2018-01-21 21:47] LABS: AMORPHOUS SEDIMENT,UR PRESENT /HPF; BACTERIA,URINE 0 /HPF (0-FEW); RBC,URINE 0 /HPF (0-2); SQUAMOUS EPITHELIAL CELL,UR FEW /LPF
[2018-01-21 21:55] LABS: ADD MAN DIFF? NO
[2018-01-21 21:59] LABS: BASO % 0 % (0-3); EOS # 0.1 x10^3/uL (0.0-0.7); EOS % 1 % (0-3); HEMATOCRIT 33.9 % (36.0-47.0); HEMOGLOBIN 11.6 g/dL (12.0-15.5); LYMPH # 2.4 x10^3/uL (1.0-4.8); LYMPH % 25 % (24-48); MEAN CORPUSCULAR HEMOGLOBIN 33 pg (25-35); MEAN CORPUSCULAR HGB CONC 34 g/dL (31-37); MEAN CORPUSCULAR VOLUME 95 fL (79-100); MONO # 0.8 x10^3/uL (0.0-1.1); MONO % 8 % (0-9); NEUT # 6.6 x10^3uL (1.8-7.7); NEUT % 67 % (31-73); PLATELET COUNT 240 x10^3/uL (140-400); RED BLOOD COUNT 3.57 x10^6/uL (3.50-5.40); RED CELL DISTRIBUTION WIDTH 13.7 % (11.5-14.5); WHITE BLOOD COUNT 9.9 x10^3/uL (4.0-11.0)
[2018-01-21 22:10] LABS: ANION GAP 8 (6-14); BLOOD UREA NITROGEN 8 mg/dL (7-20); CALCIUM 8.5 mg/dL (8.5-10.1); CARBON DIOXIDE 24 mmol/L (21-32); CHLORIDE 105 mmol/L (98-107); CREATININE 0.5 mg/dL (0.6-1.0); GLUCOSE 86 mg/dL (70-99); POTASSIUM 3.9 mmol/L (3.5-5.1); SODIUM 137 mmol/L (136-145)
== END 2018-01-21 23:15 | disposition home or self-care (01) ==
LOC: ER 20:27
DX: Z34.91 Encounter for supervision of normal pregnancy, unspecified, first trimester (principal); Z3A.11 11 weeks gestation of pregnancy; W19.XXXA Unspecified fall, initial encounter; Y93.89 Activity, other specified; Y92.89 Other specified places as the place of occurrence of the external cause; Y99.8 Other external cause status
CPT/HCPCS: 36415; 76801; 76817; 80048; 81001; 81025; 84702; 85025; 86901; 87086; 99285-25

== ENCOUNTER 2018-03-12 20:05 | Emergency (ER) | payer OTHER ==
[2018-03-12 20:49] LABS: URINE HCG POC HCG POSITIVE (Negative)
[2018-03-12 21:00] LABS: BILIRUBIN,URINE NEGATIVE (NEG); CLARITY,URINE CLOUDY; COLOR,URINE YELLOW; GLUCOSE,URINE NEGATIVE (NEG); NITRITE,URINE NEGATIVE (NEG); PROTEIN,URINE NEGATIVE (NEG-TRACE); UROBILINOGEN,URINE 0.2 mg/dL (0.2 mg/dL)
[2018-03-12] MEDS ORDERED: IV NORMAL SALINE 1000ML BAG 1,000 ML IV (21:00)
[2018-03-12 21:12] LABS: BACTERIA,URINE MANY /HPF (0-FEW); RBC,URINE OCC /HPF (0-2); SQUAMOUS EPITHELIAL CELL,UR MANY /LPF; WBC,URINE 20-40 /HPF (0-4)
[2018-03-12 21:13] LABS: TRICHOMONAS,URINE PRESENT
[2018-03-12] MEDS ORDERED: LIDOCAINE 1% PF 2 ML VIAL. (22:58)
[2018-03-12] MEDS: AZITHROMYCIN 250 MG TABLET. PO (23:04)
[2018-03-12] MEDS: cefTRIAXone IM 250 MG VIAL IM (23:04)
[2018-03-12] MEDS: LIDOCAINE 1% PF 2 ML VIAL. IM (23:15)
[2018-03-14 14:30] LABS: CHLAMYDIA PROBE Negative (Negative); GC PROBE Negative (Negative)
== END 2018-03-12 23:49 | disposition home or self-care (01) ==
LOC: ER 20:05
DX: O98.311 Other infections with a predominantly sexual mode of transmission complicating pregnancy, first trimester (principal); A59.01 Trichomonal vulvovaginitis; Z3A.13 13 weeks gestation of pregnancy
CPT/HCPCS: 76801; 81001; 81025; 87086; 87491; 87591; 96372; 99285-25; J0696; Q0111; Q0144